=== PATIENT | female | born 1960 | race Caucasian/White ===

== ENCOUNTER 2016-06-16 19:56 | Emergency (ER) | payer OTHER ==
[~2016-06-16] VITALS: Ht 152.4 cm; Wt 51.7 kg
[2016-06-16] MEDS ORDERED: Augmentin 875mg Tab ORAL ONE (20:45)
[2016-06-16] MEDS ORDERED: TdaP Vaccine 0.5ml Syr IM ONE (20:45)
[2016-06-16] MEDS ORDERED: Bacitracin Oint UD TOPIC ONE (20:45)
[2016-06-16] MEDS ORDERED: AUGMENTIN 875-1 EAC1 ORAL (20:49)
[2016-06-16] MEDS ORDERED: IBUPROFEN600 MG ORAL (20:49)
[2016-06-16 21:04] VITALS: BP 115/74
[2016-06-16 21:06] VITALS: BP 115/74
--- NOTE | 2016-06-18 00:14 | Emergency Room Report ---
History of Present Illness General Chief Complaint: Animal Bite Source: Patient Present Illness HPI 55-year-old female presents ED complaining of dog bite to the right forearm. 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 Denies any other injuries. States that the dog has been vaccinated according to the finish off operator. Patient does not recall her last tetanus shot. Patient denies any pain. Denies any tingling sensations. Denies any weakness. No other aggravating or relieving factors. Denies any other associated symptoms Allergies: Coded Allergies: No Known Allergies (Unverified , 06/16/16) Patient History Past Medical History: asthma Past Surgical History: none Pertinent Family History: none Social History: Denies: alcohol use, drug use, smoking Now: No Immunizations: UTD Reviewed Nursing Documentation: PMH: Agreed, PSxH: Agreed Nursing Documentation-PMH Past Medical History: No History, Except For Hx Asthma: Yes Review of Systems All Other Systems: negative except mentioned in HPI Physical Exam Vital Signs Date Time Temp Pulse Resp B/P Pulse Ox O2 Delivery O2 Flow Rate FiO2 06/16/16 20:17 98.2 69 16 115/74 100 Room Air Sp02 EP Interpretation: reviewed, normal General Appearance: no apparent distress, alert, GCS 15, non-toxic Head: normocephalic Eyes: bilateral eye PERRL, bilateral eye normal inspection ENT: normal ENT inspection Neck: normal inspection Respiratory: normal inspection Cardiovascular #1: normal inspection Gastrointestinal: normal inspection Rectal: deferred Genitourinary: no CVA tenderness Musculoskeletal: back normal, gait/station normal, normal range of motion, non- tender Neurologic: alert, oriented x3, responsive, motor strength/tone normal, sensory intact, speech normal Psychiatric: normal inspection Skin: other - 3cm superficial laceration to R forearm Lymphatic: normal inspection Medical Decision Making Diagnostic Impression: Primary Impression: Dog bite of extremity ER Course Hospital Course 55-year-old F presents ED c/o dog bite to R forearm Differential diagnoses include: abscess, cellulitis, ankle fracture, dislocation Clinical course Patient placed on stretcher. After initial history and physical, wound is irrigated. I ordered augmentin, tetanus. No pain or bruising suggestive of fracture therefore no x-rays indicated I explained to patient that given this is a dog bite I cannot suture the wounds. However I will prescribe her antibiotics. Patient agrees with plan. Diagnosis -dog bite Stable and discharged to home with prescription Rx motrin, augmentin. Followup with PMD. Return to ED if symptoms recur or worsen Last Vital Signs Date Time Temp Pulse Resp B/P Pulse Ox O2 Delivery O2 Flow Rate FiO2 06/16/16 21:06 98.2 69 16 115/74 100 Room Air Status: improved Disposition: HOME, SELF-CARE Condition: Stable Scripts Ibuprofen* (MOTRIN*) 600 Mg Tablet 600 MG ORAL Q8H Y for For Pain, #30 TAB 0 Refills Prov: MICHAEL SCOTT M.D. 06/16/16 Amoxicillin/Potassium Clav 875-125* (AUGMENTIN 875-125 TABLET*) 1 Each Tablet 1 TAB ORAL TWICE A DAY, #14 TAB Prov: MICHAEL SCOTT M.D. 06/16/16 Referrals: NOT CHOSEN IPA/,REFERRING (PCP) Departure Forms: Return to Work Return to Work Date: Jun 17, 2016 Work Restrictions: No Heavy Lifting Patient Instructions: Animal Bite, [id number] MICHAEL SCOTT M.D. Jun 18, 2016 00:14
== END 2016-06-16 21:06 | disposition home or self-care (01) ==
LOC: EMR 21:00
DX: S51.851A Open bite of right forearm, initial encounter (principal); J45.909 Unspecified asthma, uncomplicated; Z23 Encounter for immunization; W54.0XXA Bitten by dog, initial encounter; Y92.59 Other trade areas as the place of occurrence of the external cause; Y99.0 Civilian activity done for income or pay
CPT/HCPCS: 90471; 90715; 99283

== ENCOUNTER 2017-03-13 20:32 | Emergency (ER) | payer OTHER ==
[~2017-03-13] VITALS: Ht 152.4 cm; Wt 51.7 kg
[~2017-03-13 20:32] MED LIST: AUGMENTIN 875-1 EAC1 ORAL; IBUPROFEN600 MG ORAL
[2017-03-13 21:10] VITALS: BP 128/68
--- NOTE | 2017-03-13 21:14 | Emergency Room Report ---
History of Present Illness General Chief Complaint: Wound Recheck/Suture Removal Source: Patient Present Illness HPI Patient is a 56-year-old female who presented after increased pain to her right thumb after a needlestick. 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 The patient irrigated the injury and had a recent tetanus vaccine. Allergies: Coded Allergies: No Known Allergies (Unverified , 06/16/16) Patient History Past Medical History: see triage record Reviewed Nursing Documentation: PMH: Agreed, PSxH: Agreed Nursing Documentation-PMH Hx Asthma: Yes Review of Systems All Other Systems: negative except mentioned in HPI Physical Exam Vital Signs Date Time Temp Pulse Resp B/P (MAP) Pulse Ox O2 Delivery O2 Flow Rate FiO2 03/13/17 20:51 97.9 73 16 124/5 99 Room Air General Appearance: well appearing, no apparent distress, alert, GCS 15 Head: normocephalic, atraumatic ENT: hearing grossly normal, normal voice Neck: full range of motion, supple Respiratory: no respiratory distress, speaking full sentences Cardiovascular #1: normal inspection, normal peripheral pulses, regular rate, rhythm Gastrointestinal: normal inspection, non tender, soft, no mass Musculoskeletal: no calf tenderness Neurologic: normal inspection, alert, oriented x3, responsive, 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 Differential diagnosis included but was not limited to HIV exposure, hepatitis exposure, tetanus injury among others. Because of patient's complexity based on laboratory testing was ordered. Laboratory testing for HIV as well as hepatitis was ordered. Patient injury. At low risk for transmission due to percutaneous injury will not be prophylaxed at this time. the patient will be to followup with workers compensation physician for followup on laboratory testing and repeat HIV and hepatitis screening. Patient will require wound check in approximately 3 days. Last Vital Signs Date Time Temp Pulse Resp B/P (MAP) Pulse Ox O2 Delivery O2 Flow Rate FiO2 03/13/17 20:51 97.9 73 16 124/5 99 Room Air Status: improved Disposition: HOME, SELF-CARE Condition: Stable Conor Storey Mar 13, 2017 21:14
[2017-03-13 21:55] VITALS: BP 128/68
== END 2017-03-13 21:55 | disposition home or self-care (01) ==
LOC: EMR 21:30
DX: S61.031A Puncture wound without foreign body of right thumb without damage to nail, initial encounter (principal); W46.0XXA Contact with hypodermic needle, initial encounter; Y93.9 Activity, unspecified; Y99.0 Civilian activity done for income or pay
CPT/HCPCS: 86703; 86803; 87517; 99282